=== PATIENT | female | born 1935 | race Caucasian/White ===

== ENCOUNTER 2017-04-24 08:11 | Day surgery (SDC) | payer OTHER ==
[2017-04-23 11:17] VITALS: BMI 30.7
[~2017-04-24 08:11] MED LIST: ACETAMINOPHEN 325 MG TABLET (FP) PO PRN
[2017-04-24] MEDS: FLURBIPROFEN 0.03% OPHTH SOLN 2.5 ML BOTTLE OP SCH ×3 (08:30→08:40)
[2017-04-24] MEDS: PHENYLEPHRINE 2.5% OPHTH SOLN 15 ML BOTTLE OP SCH ×3 (08:30→08:40)
[2017-04-24] MEDS ORDERED: CIPROFLOXACIN 0.3% EYE DROPS 5 ML BOTTLE ONE (08:30)
[2017-04-24] MEDS: CYCLOPENTOLATE HCL 1% OPHTH SOLN 2 ML BOTTLE OP SCH ×3 (08:30→08:40)
[2017-04-24] MEDS: CIPROFLOXACIN HCL 0.3% OPHTH 2.5ML BOTTLE OP SCH ×3 (08:30→08:40)
[2017-04-24] MEDS: TROPICAMIDE 1% OPHTH SOLN 15 ML BOTTLE OP SCH ×3 (08:30→08:40)
[2017-04-24] MEDS ORDERED: EPINEPHrine/PF 1 MG/1 ML (1:1,000) AMPULE ONE (10:12)
[2017-04-24] MEDS ORDERED: BUPIVACAINE HCL/PF 0.75% 10 ML VIAL ONE (10:12)
[2017-04-24] MEDS ORDERED: LIDOCAINE HCL/PF 2% SDV 5ML VIAL ONE (10:12)
[2017-04-24] MEDS ORDERED: LIDOCAINE HCL/PF 1% SDV 5ML VIAL ONE (10:12)
[2017-04-24] MEDS ORDERED: MIDAZOLAM HCL 2 MG/2 ML SINGLE DOSE VIAL ONE (10:46)
[2017-04-24] MEDS ORDERED: LIDOCAINE HCL/PF 2% SDV 5ML VIAL PNB ONE (10:49)
[2017-04-24] MEDS ORDERED: BUPIVACAINE HCL/PF 0.75% 10 ML VIAL RB ONE (10:49)
[2017-04-24] MEDS ORDERED: LIDOCAINE HCL/PF 2% SDV 5ML VIAL INF ONE (10:50)
[2017-04-24] MEDS ORDERED: BUPIVACAINE HCL/PF 0.75% 10 ML VIAL PNB ONE (10:50)
[2017-04-24] MEDS ORDERED: HYALURONATE SODIUM 14 MG/ML DISP.SYRIN IO ONE (10:50)
[2017-04-24] MEDS ORDERED: TRYPAN BLUE 0.5 ML DISP.SYRIN IO ONE (10:51)
[2017-04-24] MEDS ORDERED: CHONDROITIN SU A/HYALUR SOD 1 KIT IO ONE (10:51)
[2017-04-24] MEDS ORDERED: MANNITOL 25% 12.5 GM/50 ML VIAL IVPB ONE ×2 (11:01→11:02)
[2017-04-24] MEDS ORDERED: ACETYLCHOLINE 1:100 INTRA-OCUL 20 MG/2 ML KIT IO ONE ×2 (11:41→11:49)
[2017-04-24] MEDS ORDERED: ACETYLCHOLINE 1:100 INTRA-OCUL 20 MG/2 ML KIT ONE (11:45)
[2017-04-24] MEDS ORDERED: TRIAMCINOLONE ACET 40MG/1ML VIAL ONE (11:59)
[2017-04-24] MEDS ORDERED: TRIAMCINOLONE ACET 40MG/1ML VIAL IJ ONE (12:09)
[2017-04-24 13:36] VITALS: BP 142/78; PULSE 65; TEMP 98
--- NOTE | 2017-04-25 15:32 | OP ---
DATE OF OPERATION: 04/24/2017 PREOPERATIVE DIAGNOSIS: Mature cataract, right eye; associated diagnosis of pseudo-exfoliation. PROCEDURE: Phacoemulsification of right cataract with capsule stained with trypan blue, anterior vitrectomy, and anterior chamber intraocular lens. The lens used was [id number], 21.0 diopter power, serial number [id number]. ANESTHESIA: Peribulbar/modified van Lint/MAC. COMPLICATIONS: None. DESCRIPTION OF PROCEDURE: The patient was brought to the operating room and correctly identified along with the operative site and intraocular lens gonsalez. She was then given a peribulbar block under sedation with 5 mL of a 1:1 mixture of 2% lidocaine and 0.75% bupivacaine. Then, 3 mL of the same mixture were given as a modified van Lint block. The eye was then prepped and draped in the usual sterile fashion including 5% Betadine solution in the conjunctival sac and an eyelid drape. An eyelid speculum was then placed into the right eye. The eye was inspected and a white cataract noted with pseudo-exfoliation. A paracentesis port was created and intracameral lidocaine was given, approximately 0.5 mL. An air bubble was then placed and the capsule was stained with trypan blue. The trypan blue was then irrigated and aspirated. The remaining preservative-free lidocaine and viscoelastic were placed to stabilize the anterior chamber. A temporal clear corneal wound was created. A continuous circular capsulorrhexis was performed and the nucleus was then hydrodissected with BSS. Phacoemulsification was done via the [id number]-[id number]-[id number] approach, and the lens was cracked into 4 pieces. The lens was noted to be very thick, but each piece was slowly removed. However, upon the last quadrant, a was noted with breach of the anterior capsule. Viscoat was then placed beneath the remaining nuclear fragment and the phaco tip slowly withdrawn. The eye was then inspected and there appeared to be a large capsular tear with an almost complete dehiscence. There was an intact anterior capsule noted for approximately 7 clock hours. Further viscoelastic was then placed beneath and using the phaco probe with a lower bottle height, the remaining nuclear fragment was then removed from the eye. The temporal clear corneal wound was then sutured with a 10-0 nylon, and using bimanual anterior vitrectomy, an anterior vitrectomy was performed. The remaining epinuclear material was removed while occasionally placing Viscoat to keep any further vitreous from prolapsing. After this was performed to an adequate degree, the eye was inspected. There were approximately 6-7 clock hours of anterior capsule remaining. However, decision was made to place an anterior chamber lens. The temporal clear corneal wound was enlarged to approximately 5.5 mm. The Miochol had been placed in the eye to constrict the pupil. Further vitrectomy was performed until there was no sign of any vitreous in the anterior chamber and all wounds free. Provisc was then placed within the angle to deepen it. The lens was then placed into the angle and noted to be in good position. An inferior was made by using 0.12 forceps through the inferior paracentesis with Vannas scissors. At the end of the procedure, the intraocular lens was noted to be well positioned. Three 10-0 nylon sutures had been placed in the temporal clear corneal wound. No leakage was noted. There was no sign of any vitreous from any wounds. Subconjunctival vancomycin and Kenalog were given, the eye patched and shielded, and the patient discharged from the operating room in a stable condition. NEVILLE DIAZ M.D. [id number]
== END 2017-04-24 13:36 | disposition home or self-care (01) ==
LOC: JASU-SURG 08:11
PROVIDERS: ATTEND Ophthalmology
PROC: 08B43ZZ Excision of Right Vitreous, Percutaneous Approach (ICD-10-PCS; 2017-04-24)
PROC: 08RJ3JZ Replacement of Right Lens with Synthetic Substitute, Percutaneous Approach (ICD-10-PCS; principal; 2017-04-24 10:00)
DX: H25.21 Age-related cataract, morgagnian type, right eye (principal); H26.8 Other specified cataract; H43.89 Other disorders of vitreous body

== ENCOUNTER 2017-07-10 09:47 | Day surgery (SDC) | payer OTHER ==
[2017-07-09 12:27] VITALS: BMI 30.7
[~2017-07-10 09:47] MED LIST changes: +CIPROFLOXACIN HCL 0.3% OPHTH 2.5ML BOTTLE OP SCH; +CYCLOPENTOLATE HCL 1% OPHTH SOLN 2 ML BOTTLE OP SCH; +FLURBIPROFEN 0.03% OPHTH SOLN 2.5 ML BOTTLE OP SCH; +PHENYLEPHRINE 2.5% OPHTH SOLN 15 ML BOTTLE OP SCH; +TROPICAMIDE 1% OPHTH SOLN 15 ML BOTTLE OP SCH; +VANCOMYCIN 500 MG VIAL (RESTRICTED TO ID ONLY) IVPB ONE
[2017-07-10 10:23] VITALS: TEMP 98.5
[2017-07-10] MEDS ORDERED: PHENYLEPHRINE 2.5% OPHTH SOLN 15 ML BOTTLE ONE (10:34)
[2017-07-10] MEDS ORDERED: FLURBIPROFEN 0.03% OPHTH SOLN 2.5 ML BOTTLE ONE (10:34)
[2017-07-10] MEDS ORDERED: TROPICAMIDE 1% OPHTH SOLN 15 ML BOTTLE ONE (10:34)
[2017-07-10] MEDS ORDERED: CYCLOPENTOLATE HCL 1% OPHTH SOLN 2 ML BOTTLE ONE (10:34)
[2017-07-10] MEDS ORDERED: CIPROFLOXACIN 0.3% EYE DROPS 5 ML BOTTLE ONE (10:34)
[2017-07-10] MEDS ORDERED: MIDAZOLAM HCL 2 MG/2 ML SINGLE DOSE VIAL ONE (12:13)
[2017-07-10] MEDS ORDERED: LIDOCAINE HCL/PF 2% SDV 5ML VIAL ONE ×2 (12:14→13:50)
[2017-07-10] MEDS ORDERED: LIDOCAINE HCL/PF 2% SDV 5ML VIAL INF ONE (12:30)
[2017-07-10] MEDS ORDERED: BUPIVACAINE HCL/PF 0.75% 10 ML VIAL NR ONE (12:30)
[2017-07-10] MEDS ORDERED: POVIDONE-IODINE 5% OPHTHALMIC PREP 30 ML SOLUTION OS ONE (12:34)
[2017-07-10] MEDS ORDERED: BSS (NA/CA/MG/K) BALANCED SALT SOLUTION OPHTH SOLN 15 ML BOTTLE IO ONE ×2 (12:41→13:00)
[2017-07-10] MEDS ORDERED: LIDOCAINE HCL 1% PRESERVATIVE FREE - 30ML VIAL IO ONE (12:42)
[2017-07-10] MEDS ORDERED: CHONDROITIN SU A/HYALUR SOD 1 KIT IO ONE (12:43)
[2017-07-10] MEDS ORDERED: EPINEPHrine/PF 1 MG/1 ML (1:1,000) AMPULE IO ONE (12:45)
[2017-07-10] MEDS ORDERED: TRYPAN BLUE 0.5 ML DISP.SYRIN IO ONE ×2 (12:45)
[2017-07-10] MEDS ORDERED: VANCOMYCIN 500 MG VIAL (RESTRICTED TO ID ONLY) IVPB ONE (13:07)
--- NOTE | 2017-07-10 13:45 | OP ---
DATE OF OPERATION: 07/10/2017 PREOPERATIVE DIAGNOSIS: Cataract, left eye. ASSOCIATED DIAGNOSIS: Pseudoexfoliation. OPERATION: Phacoemulsification of left cataract with posterior chamber intraocular lens implantation and capsular staining with Trypan blue. The lens used [id number], 25.5 diopter power, serial No. [id number]. ANESTHESIA: Peribulbar/Modified Van Lint/MAC. COMPLICATIONS: None. PROCEDURE: The patient was brought to the operating room and correctly identified along with the operative site as well as the correct intraocular lens gonsalez. She was given a peribulbar block under sedation with 5 mL of a 1:1 mixture of 2% Lidocaine and 0.75% Bupivacaine. Then, 2 mL of the same mixture was given as a modified Van Lint block. The eye was then prepped and draped in the usual sterile fashion including 5% Betadine solution in the conjunctival sac. An eyelid speculum was then placed into the left eye. The eye was inspected, and a white cataract with a poor red reflex was noted. A paracentesis port was created, and intracameral lidocaine was given approximately 0.5 mL. Then, beneath an air bubble, the capsule was stained with Trypan blue. Viscoelastic was injected to inflate the anterior chamber, and temporal clear corneal wound was created. A continuous circular capsulorrhexis was then successfully performed, and the nucleus was hydro-dissected with BSS. The nucleus was then removed via the [id number] approach. Remaining epinuclear and cortical material were then irrigated and aspirated from the eye. Viscoelastic was injected to inflate the capsular bag. The lens was then injected into the capsular bag, and the viscoelastic irrigated and aspirated from the eye. All wounds were tested and found to be watertight. The intraocular lens was noted to be well centered and covered by the anterior capsular border. No sutures were placed. Topical vancomycin given, the eye patched and shielded, and the patient discharged from the operating room in a stable condition. NEVILLE DIAZ M.D. [id number]
[2017-07-10] MEDS ORDERED: EPINEPHrine/PF 1 MG/1 ML (1:1,000) AMPULE ONE (13:50)
[2017-07-10] MEDS ORDERED: BUPIVACAINE HCL/PF 0.75% 10 ML VIAL ONE (13:50)
[2017-07-10] MEDS ORDERED: LIDOCAINE HCL/PF 1% SDV 5ML VIAL ONE (13:50)
[2017-07-10] MEDS ORDERED: POVIDONE-IODINE 5% OPHTHALMIC PREP 30 ML SOLUTION ONE (13:51)
[2017-07-10] MEDS ORDERED: TRYPAN BLUE 0.5 ML DISP.SYRIN ONE (13:53)
[2017-07-10 15:06] VITALS: BP 143/80; PULSE 73
== END 2017-07-10 14:20 | disposition home or self-care (01) ==
LOC: JASU-SURG 09:47
PROVIDERS: ATTEND Ophthalmology
PROC: 08RK3JZ Replacement of Left Lens with Synthetic Substitute, Percutaneous Approach (ICD-10-PCS; principal; 2017-07-10 11:00)
DX: H26.9 Unspecified cataract (principal); H57.8 Other specified disorders of eye and adnexa

== ENCOUNTER 2021-10-16 22:38 | Inpatient (IN) | payer OTHER ==
[2021-10-16 22:46] VITALS: BMI 35.2
[2021-10-16] MEDS ORDERED: ASPIRIN 81 MG CHEWABLE TABLETS PO ONE (23:33)
[2021-10-16] MEDS ORDERED: ASPIRIN 81 MG CHEWABLE TABLETS ONE (23:47)
[2021-10-17 00:08] LABS: BASO % 0.8 % (0-2.0); EOS % 7.9 % (0-4.5); HEMATOCRIT 34.7 % (32.4-45.2); HEMOGLOBIN 11.8 GM/dL (10.7-15.3); LYMPH % 30.4 % (8-40); MCH 30.5 pg (25.7-33.7); MEAN CELL VOLUME 89.8 fl (80-96); MEAN PLT VOLUME 9.2 fl (7.5-11.1); MONO % 9.4 % (3.8-10.2); NEUT % 51.5 % (42.8-82.8); PLATELET COUNT 231 10^3/uL (134-434); RBC 3.86 M/mm3 (3.60-5.2); RDW 12.7 % (11.6-15.6); WHITE BLOOD COUNT 5.8 K/mm3 (4.0-10.0)
[2021-10-17 00:20] LABS: INR 1.06 (0.83-1.09); PROTHROMBIN TIME (PATIENT) 12.2 SEC (9.7-13.0)
[2021-10-17] MEDS: SODIUM CHLORIDE 1,000 ML IV SCH (00:20)
[2021-10-17 00:23] LABS: ACTIVATED PTT 38.3 SECONDS (25.2-36.5)
[2021-10-17 00:29] LABS: CALCIUM 8.7 mg/dL (8.5-10.1)
[2021-10-17 00:30] LABS: ALBUMIN 3.6 g/dl (3.4-5.0); BLOOD UREA NITROGEN 22.2 mg/dL (7-18)
[2021-10-17 00:33] LABS: CREATININE 0.6 mg/dL (0.55-1.3)
[2021-10-17 00:34] LABS: BILIRUBIN,TOTAL 0.4 mg/dL (0.2-1); TOT PROT 6.7 g/dl (6.4-8.2)
[2021-10-17] MEDS ORDERED: ATORVASTATIN CA 80 MG TABLET (FP) PO ONE (03:11)
[2021-10-17] MEDS ORDERED: ATORVASTATIN CA 80 MG TABLET (FP) ONE ×3 (03:50→21:27)
[2021-10-17] MEDS: INSULIN SLIDING SCALE (NOVOLOG) 1 VIAL SQ SCH ×4 (06:09→23:08)
[2021-10-17 07:40] LABS: BASO % 0.7 % (0-2.0); EOS % 6.7 % (0-4.5); HEMATOCRIT 35.4 % (32.4-45.2); HEMOGLOBIN 11.8 GM/dL (10.7-15.3); LYMPH % 37.3 % (8-40); MCH 30.6 pg (25.7-33.7); MCHC 33.5 g/dl (32.0-36.0); MEAN CELL VOLUME 91.4 fl (80-96); MONO % 7.2 % (3.8-10.2); NEUT % 48.1 % (42.8-82.8); PLATELET COUNT 237 10^3/uL (134-434); RBC 3.87 M/mm3 (3.60-5.2); RDW 12.9 % (11.6-15.6); WHITE BLOOD COUNT 5.9 K/mm3 (4.0-10.0)
[2021-10-17 08:02] LABS: EPI CELLS 3 /uL (0-25.1); HYALINE CASTS 0 /uL (0-3.1); URINE APPEARANCE CLEAR; URINE BACTERIA 27 /uL (0-1359); URINE BILIRUBIN NEGATIVE (NEGATIVE); URINE COLOR YELLOW; URINE GLUCOSE (UA) NEGATIVE (NEGATIVE); URINE KETONE NEGATIVE (NEGATIVE); URINE LEUK ESTERASE 1+ (NEGATIVE); URINE NITRITE NEGATIVE (NEGATIVE); URINE PROTEIN NEGATIVE (NEGATIVE); URINE RBC 3 /uL (0-23.9); URINE UROBILINOGEN 0.2 mg/dL (0.2-1.0); URINE WBC 20 /uL (0-25.8)
[2021-10-17 08:03] LABS: ALBUMIN 3.5 g/dl (3.4-5.0); CALCIUM 8.9 mg/dL (8.5-10.1)
[2021-10-17 08:05] LABS: CREATININE 0.6 mg/dL (0.55-1.3); PHOSPHOROUS 3.8 mg/dL (2.5-4.9)
[2021-10-17 08:07] LABS: BILIRUBIN,TOTAL 0.4 mg/dL (0.2-1); TOT PROT 6.7 g/dl (6.4-8.2)
[2021-10-17] MEDS ORDERED: LORazepam 1 MG TABLET PO PRN (14:05)
[2021-10-17] MEDS ORDERED: ENOXAPARIN NA (PORCINE) 40 MG/0.4 ML DISP.SYRIN SQ ONE (14:07)
[2021-10-17] MEDS ORDERED: LOSARTAN POTASSIUM 50 MG TABLET ONE (14:07)
[2021-10-17] MEDS: MEMANTINE HCL 10 MG TABLET (FP) PO SCH ×3 (14:30→22:55)
[2021-10-17] MEDS: LOSARTAN POTASSIUM 25 MG TABLET PO SCH (14:30)
[2021-10-17] MEDS: ENOXAPARIN NA (PORCINE) 40 MG/0.4 ML DISP.SYRIN SQ SCH (14:30)
[2021-10-17] MEDS ORDERED: LORazepam 2 MG/ML SDV VIAL IVPUSH ONE (14:44)
[2021-10-17] MEDS: ATORVASTATIN CA 80 MG TABLET (FP) PO SCH (21:37)
[2021-10-17] MEDS ORDERED: ACETAMINOPHEN 325 MG TABLET (FP) PO ONE (22:46)
[2021-10-18] MEDS: INSULIN SLIDING SCALE (NOVOLOG) 1 VIAL SQ SCH ×4 (06:45→23:06)
[2021-10-18 07:56] LABS: BASO % 0.7 % (0-2.0); EOS % 5.2 % (0-4.5); HEMATOCRIT 33.5 % (32.4-45.2); HEMOGLOBIN 11.3 GM/dL (10.7-15.3); LYMPH % 26.1 % (8-40); MCH 30.7 pg (25.7-33.7); MCHC 33.6 g/dl (32.0-36.0); MEAN CELL VOLUME 91.4 fl (80-96); MEAN PLT VOLUME 10.4 fl (7.5-11.1); MONO % 8.6 % (3.8-10.2); NEUT % 59.4 % (42.8-82.8); PLATELET COUNT 235 10^3/uL (134-434); RBC 3.67 M/mm3 (3.60-5.2); RDW 13.2 % (11.6-15.6)
[2021-10-18 08:04] LABS: CALCIUM 8.5 mg/dL (8.5-10.1)
[2021-10-18 08:05] LABS: BLOOD UREA NITROGEN 18.7 mg/dL (7-18); MAGNESIUM 2.2 mg/dL (1.8-2.4)
[2021-10-18 08:07] LABS: PHOSPHOROUS 3.8 mg/dL (2.5-4.9)
[2021-10-18 08:08] LABS: CREATININE 0.5 mg/dL (0.55-1.3)
[2021-10-18] MEDS: ASPIRIN 81 MG CHEWABLE TABLETS PO SCH (10:10)
[2021-10-18] MEDS: MEMANTINE HCL 10 MG TABLET (FP) PO SCH ×2 (10:10→22:57)
[2021-10-18] MEDS: LOSARTAN POTASSIUM 25 MG TABLET PO SCH (10:10)
[2021-10-18] MEDS: ENOXAPARIN NA (PORCINE) 40 MG/0.4 ML DISP.SYRIN SQ SCH (10:14)
[2021-10-18] MEDS: SODIUM CHLORIDE 1,000 ML IV SCH (22:57)
[2021-10-18] MEDS: ATORVASTATIN CA 80 MG TABLET (FP) PO SCH (22:57)
[2021-10-19] MEDS: INSULIN SLIDING SCALE (NOVOLOG) 1 VIAL SQ SCH ×4 (06:43→21:50)
[2021-10-19] MEDS: SODIUM CHLORIDE 1,000 ML IV SCH (06:43)
[2021-10-19 07:20] LABS: BASO % 0.7 % (0-2.0); EOS % 7.8 % (0-4.5); HEMATOCRIT 33.9 % (32.4-45.2); HEMOGLOBIN 11.9 GM/dL (10.7-15.3); LYMPH % 23.1 % (8-40); MCH 31.5 pg (25.7-33.7); MCHC 35.3 g/dl (32.0-36.0); MEAN CELL VOLUME 89.4 fl (80-96); MEAN PLT VOLUME 9.4 fl (7.5-11.1); MONO % 7.4 % (3.8-10.2); PLATELET COUNT 231 10^3/uL (134-434); RBC 3.79 M/mm3 (3.60-5.2); RDW 12.9 % (11.6-15.6); WHITE BLOOD COUNT 5.8 K/mm3 (4.0-10.0)
[2021-10-19 07:45] LABS: BLOOD UREA NITROGEN 21.3 mg/dL (7-18)
[2021-10-19 07:47] LABS: CALCIUM 8.9 mg/dL (8.5-10.1)
[2021-10-19 07:48] LABS: CREATININE 0.6 mg/dL (0.55-1.3); MAGNESIUM 2.2 mg/dL (1.8-2.4)
[2021-10-19 07:49] LABS: PHOSPHOROUS 4.3 mg/dL (2.5-4.9)
[2021-10-19] MEDS: MEMANTINE HCL 10 MG TABLET (FP) PO SCH ×2 (10:30→21:49)
[2021-10-19] MEDS: ASPIRIN 81 MG CHEWABLE TABLETS PO SCH (10:30)
[2021-10-19] MEDS: LOSARTAN POTASSIUM 25 MG TABLET PO SCH (10:30)
[2021-10-19] MEDS: ENOXAPARIN NA (PORCINE) 40 MG/0.4 ML DISP.SYRIN SQ SCH (10:30)
[2021-10-19] MEDS: ATORVASTATIN CA 80 MG TABLET (FP) PO SCH (21:49)
[2021-10-20] MEDS: SODIUM CHLORIDE 1,000 ML IV SCH (06:02)
[2021-10-20] MEDS: INSULIN SLIDING SCALE (NOVOLOG) 1 VIAL SQ SCH ×2 (06:03→12:38)
[2021-10-20 09:40] LABS: BASO % 0.6 % (0-2.0); EOS % 7.3 % (0-4.5); HEMATOCRIT 35.6 % (32.4-45.2); HEMOGLOBIN 11.8 GM/dL (10.7-15.3); LYMPH % 24.3 % (8-40); MCH 30.1 pg (25.7-33.7); MCHC 33.3 g/dl (32.0-36.0); MEAN CELL VOLUME 90.6 fl (80-96); MEAN PLT VOLUME 10.5 fl (7.5-11.1); MONO % 7.5 % (3.8-10.2); NEUT % 60.3 % (42.8-82.8); PLATELET COUNT 255 10^3/uL (134-434); RBC 3.93 M/mm3 (3.60-5.2); RDW 12.8 % (11.6-15.6); WHITE BLOOD COUNT 6.3 K/mm3 (4.0-10.0)
[2021-10-20] MEDS: ENOXAPARIN NA (PORCINE) 40 MG/0.4 ML DISP.SYRIN SQ SCH (09:44)
[2021-10-20] MEDS: MEMANTINE HCL 10 MG TABLET (FP) PO SCH (09:44)
[2021-10-20] MEDS: ASPIRIN 81 MG CHEWABLE TABLETS PO SCH (09:44)
[2021-10-20] MEDS: LOSARTAN POTASSIUM 25 MG TABLET PO SCH (09:44)
[2021-10-20 10:04] LABS: CALCIUM 8.6 mg/dL (8.5-10.1)
[2021-10-20 10:05] LABS: BLOOD UREA NITROGEN 17.5 mg/dL (7-18); MAGNESIUM 2.1 mg/dL (1.8-2.4)
[2021-10-20 10:08] LABS: CREATININE 0.6 mg/dL (0.55-1.3)
[2021-10-20 15:06] VITALS: BP 161/85; PULSE 73; TEMP 98.5
[2021-10-20] MEDS ORDERED: DOCUSATE SODIUM 100 MG CAPSULE (FP) PO ONE (16:11)
[2021-10-20] MEDS ORDERED: SENNOSIDES 8.6MG TABLET (FP) PO SCH (16:12)
== END 2021-10-20 18:40 | DRG 45 ==
LOC: JER 22:38 → JERBED 10-17 01:14 → J4W 10-17 22:05
PROVIDERS: ADMIT Hospitalist; ATTEND Internal Medicine
DX: I63.9 Cerebral infarction, unspecified (principal); F02.81 Dementia in other diseases classified elsewhere, unspecified severity, with behavioral disturbance; G30.9 Alzheimer's disease, unspecified; I69.351 Hemiplegia and hemiparesis following cerebral infarction affecting right dominant side; E11.9 Type 2 diabetes mellitus without complications; E78.5 Hyperlipidemia, unspecified; I10 Essential (primary) hypertension; R29.703 NIHSS score 3
CPT/HCPCS: 36415; 70450-TC; 70544-TC; 70551-TC; 71045-TC-FY; 74230-TC-FY; 80048; 80053; 80061; 81003; 82962; 83036; 83735; 84100; 84443; 84484; 85025; 85610; 85730; 86850; 86900; 86901; 92611-GN; 93005; 93010; 93306-TC; 93880-TC; 97116-GP; 97162-GP; 99285-25; C9803; U0003; U0005